=== PATIENT | male | born 1990 | race African-American/Black ===

== ENCOUNTER 2016-09-26 19:53 | Emergency (ER) | payer OTHER ==
[~2016-09-26] VITALS: Wt 107.5 kg
[~2016-09-26 19:53] MED LIST: OXYC-282 PO
[2016-09-26] MEDS ORDERED: LIDOCAINE 1% (MDV) 10 ML INJ INJ STA (21:07)
--- NOTE | 2016-09-26 21:29 | ERD ---
ER Documentation Chief Complaint Date/Time DATE: 09/26/16 TIME: 21:18 Chief Complaint Lac right wrist with glass HPI 26-year-old male comes in with a laceration to the right wrist from a piece of glass that occurred this afternoon. Patient states that he was trying to open the door and a piece of glass had flown and caused a laceration. He has localized pain, sharp, no weakness, no paresthesias. Patient does not recall his last tetanus shot. ROS All systems reviewed and are negative except as per history of present illness. Medications Home Meds Active Scripts Oxycodone Hcl-Acetaminophen* (Percocet*) 2.5-325 Mg Tablet, 1 TAB PO Q4H Y for PAIN, #15 TAB Prov:BETHANY ANGUIANO NP 07/09/15 Allergies Allergies: Coded Allergies: Penicillins (Verified Allergy, Mild, 09/26/16) acetaminophen (Verified Allergy, Unknown, SWEATS, 09/26/16) hydrocodone bit (Verified Allergy, Unknown, SWEATS, 09/26/16) PMhx/Soc History of Surgery: Yes (LEFT TIBIA) Anesthesia Reaction: No Hx Neurological Disorder: No Hx Respiratory Disorders: Yes (ASTHMA) Hx Cardiac Disorders: No Hx Psychiatric Problems: No Hx Miscellaneous Medical Probl: No Hx Alcohol Use: No Hx Substance Use: No Hx Tobacco Use: Yes Smoking Status: Current every day smoker Physical Exam Vitals Vital Signs Date Time Temp Pulse Resp B/P Pulse Ox O2 Delivery O2 Flow Rate FiO2 09/26/16 20:17 98.7 96 20 131/73 97 Physical Exam General: Well-developed, well-nourished. The patient appears in no acute distress. HEENT: Head is normocephalic, atraumatic. No scleral icterus. Neck: Supple. Nontender. Lungs: Clear to auscultation. Normal air movement. Heart: Regular rate and rhythm. S1 and S2 are normal. No murmurs, gallops, or rubs. Abdomen: Nondistended. Extremities: 2 cm transverse superficial laceration over the volar aspect of the right wrist. There is no tendon visible, no active bleeding, no foreign body seen. Radial, ulnar, median nerve intact.. Neurologic: Alert and oriented 3. No focal deficits. Normal speech and gait. Skin: Normal turgor. No rash or lesions. Results 24 hrs Current Medications Medications (Trade) Dose Ordered Sig/Hue Route PRN Reason Start Time Stop Time Status Last Admin Dose Admin Diphtheria/ Tetanus/Acell Pertussis (Adacel) 0.5 ml ONCE ONCE IM 09/26/16 21:30 09/26/16 21:31 DC 09/26/16 21:19 Lidocaine HCl (Lidocaine 1% (Mdv) 10 ml) 10 ml ONCE STAT INJ 09/26/16 21:07 09/26/16 21:08 DC Procedures/MDM Laceration Repair by me: Patient was verbally consented Thorough irrigation was done with normal saline, patient was anesthetized and reirrigated. Anesthesia: 1% lidocaine locally, 3 cc Location: Right wrist Tendon/Joint/Nerves: No injury Foreign body: None detected after copious irrigation and exploration Technique: Simple Interrupted Sutures 4 using 4-0 Ethilon Complexity: No subcutaneous sutures/mucosal repair/ edge excision Post Closure Length: 3 cm Patient's bleeding was easily controlled in the department and there is no indication of anemia. No evidence of compartment syndrome, neurologic injury, vascular injury, open joint, tendon laceration, or foreign body. Patient is appropriate for outpatient follow up. 48 hour wound check. Scar minimization instructions given. MDM: 26-year-old male comes in with a volar aspect wrist laceration from glass. It was accidental laceration, without any suicidal ideation or intent. Laceration is superficial, subcutaneous tissue visible however no active bleeding, no tendon visible. He does not have any neurologic deficits. I doubt any retained foreign body. Multiple irrigations were done, he was also reirrigated after he was anesthetized and there was no evidence of foreign body. Departure Diagnosis: Primary Impression: Laceration Condition: Good Patient Instructions: Laceration, All Additional Instructions: Wound check in 2 days. Suture removal in 7-10 days. Return to the ER sooner for any worsening or new symptoms. UNIQUE MCCLAIN PA-C Sep 26, 2016 21:28
[2016-09-26] MEDS ORDERED: DIPHTH/TET/ACEL PERTUSS (ADULT) 0.5 ML VIAL IM ONE (21:30)
[2016-09-26 21:54] VITALS: BP 136/76; PULSE 74; RESP 20; TEMP 98.3
== END 2016-09-26 21:55 | disposition home or self-care (01) ==
LOC: FTE 19:53
DX: S61.511A Laceration without foreign body of right wrist, initial encounter (principal); J45.909 Unspecified asthma, uncomplicated; F17.210 Nicotine dependence, cigarettes, uncomplicated; W25.XXXA Contact with sharp glass, initial encounter; Y92.9 Unspecified place or not applicable; Z23 Encounter for immunization
CPT/HCPCS: 12002; 90715; Z7610; 90471

== ENCOUNTER 2018-04-24 05:48 | Emergency (ER) | payer OTHER ==
[~2018-04-24] VITALS: Wt 95.5 kg
[2018-04-24 05:50] VITALS: BP 138/84; PULSE 117; RESP 20
[2018-04-24] MEDS ORDERED: KETOROLAC 30 MG INJ IM STA (06:17)
[2018-04-24] MEDS ORDERED: DIPHTH/TET/ACEL PERTUSS (ADULT) 0.5 ML VIAL IM* ONE (06:30)
[2018-04-24] MEDS ORDERED: IBUP-1542 PO (07:29)
[2018-04-24] MEDS ORDERED: CIPR500T4 PO (07:29)
--- NOTE | 2018-04-24 17:11 | ERD ---
ER Documentation Chief Complaint Chief Complaint 2 PUNCTURE WOUNDS ON SOLE OF LEFT FOOT HPI 27-year-old male presents for puncture wound on the sole of his left foot. He states that he has 2 of them. Happened last night. He states that he stepped on the fireplace fire iron. He notes 9 out of 10 pain. Denies any fever or chills. Unsure of his tetanus status. ROS All systems reviewed and are negative except as per history of present illness. Medications Home Meds Active Scripts Ciprofloxacin Hcl* (Ciprofloxacin Hcl*) 500 Mg Tablet, 500 MG PO BID for puncture wound for 5 Days, #10 TAB Prov:TERRIE MARK DO 04/24/18 Ibuprofen* (Motrin*) 600 Mg Tab, 600 MG PO Q6H PRN for PAIN AND OR ELEVATED TEMP, #30 TAB Prov:TERRIE MARK DO 04/24/18 Oxycodone Hcl-Acetaminophen* (Percocet*) 2.5-325 Mg Tablet, 1 TAB PO Q4H PRN for PAIN, #15 TAB Prov:BETHANY ANGUIANO [employer] 07/09/15 Allergies Allergies: Coded Allergies: Penicillins (Verified Allergy, Mild, 09/26/16) acetaminophen (Verified Allergy, Unknown, SWEATS, 09/26/16) hydrocodone bit (Verified Allergy, Unknown, SWEATS, 09/26/16) PMhx/Soc History of Surgery: Yes (LEFT TIBIA) Anesthesia Reaction: No Hx Neurological Disorder: No Hx Respiratory Disorders: Yes (ASTHMA) Hx Cardiac Disorders: No Hx Psychiatric Problems: No Hx Miscellaneous Medical Probl: No Hx Alcohol Use: No Hx Substance Use: No Hx Tobacco Use: Yes Smoking Status: Current every day smoker Physical Exam Vitals Temperature 96.6, pulse 117, respiration 20, blood pressure 138/84 Physical Exam Const: No acute distress Resp: Clear to auscultation bilaterally Cardio: Regular rate and rhythm, no murmurs, bilateral dorsalis pedis pulses intact Skin: No petechiae or rashes Back: No midline or flank tenderness Ext: Left plantar sided foot puncture wounds noted, no active bleeding Neur: Awake and alert, bilateral lower extremity sensation intact Psych: Normal Mood and Affect Results 24 hrs Current Medications Medications Dose Sig/Hue Start Time Status Last (Trade) Ordered Route PRN Stop Time Admin Dose Reason Admin Diphtheria/ 0.5 ml ONCE ONCE 04/24/18 DC 04/24/18 Tetanus/Acell IM* 06:30 06:29 Pertussis 04/24/18 06:31 (Adacel) Ketorolac 30 mg ONCE STAT 04/24/18 DC 04/24/18 Tromethamine IM 06:17 06:28 (Toradol) 04/24/18 06:19 Procedures/MDM Medical Decision Making: Differential diagnosis includes but not limited to puncture wound, cellulitis, foreign body Patient appeared well on physical exam. 2 puncture wounds noted on the left lateral side of the foot Wound was irrigated in the ER. Foot x-ray was negative for foreign body ED course: Patient was given toradol, tetanus shot given. Symptoms improved with treatment. Prescription(s): Patient given prescription for Cipro, ibuprofen. Patient advised to return to ER in 2 days for wound check. Patient advised to follow up with PCP in 1-2 days. Patient advised to return to ED for new or worsening symptoms. Patient stable on discharge from the ED. Disclaimer: Inadvertent spelling and grammatical errors are likely due to EHR/dictation software use and do not reflect on the overall quality of patient care. Also, please note that the electronic time recorded on this note does not necessarily reflect the actual time of the patient encounter. Departure Diagnosis: Primary Impression: Puncture wound Condition: Fair Patient Instructions: First Aid: Punctures, Puncture Wound, General, Puncture Wound, Foot Referrals: ANGELO MORENO MD (PCP) Additional Instructions: Call your primary care doctor TOMORROW for an appointment during the next 1-2 days.See the doctor sooner or return here if your condition worsens before your appointment time. TERRIE MARK DO Apr 24, 2018 17:11
== END 2018-04-24 07:37 | disposition home or self-care (01) ==
LOC: FTE 05:48
DX: S91.332A Puncture wound without foreign body, left foot, initial encounter (principal); J45.909 Unspecified asthma, uncomplicated; F17.210 Nicotine dependence, cigarettes, uncomplicated; X58.XXXA Exposure to other specified factors, initial encounter; Y92.9 Unspecified place or not applicable; Z23 Encounter for immunization
CPT/HCPCS: 73630; 90471; 90715; 96372; J1885; Z7502

== ENCOUNTER 2018-12-18 03:25 | Emergency (ER) | payer OTHER ==
[~2018-12-18] VITALS: Ht 180.3 cm; Wt 109.7 kg
[~2018-12-18 03:25] MED LIST changes: +CIPR500T4 PO; +IBUP-1542 PO; +IBUP-1561 PO; +ONDA4TAB14 PO
[2018-12-18 03:28] VITALS: Ht 180.3 cm; Wt 109.7 kg
[2018-12-18] MEDS ORDERED: morphine 4 MG/ML VIAL IV STA (04:15)
[2018-12-18] MEDS ORDERED: SOD CHLORIDE 0.9% 1,000 ML IV STA (04:15)
[2018-12-18] MEDS ORDERED: ONDANSETRON 4 MG INJ IV STA (04:15)
[2018-12-18 05:49] VITALS: BP 139/94; PULSE 88; RESP 15
== END 2018-12-18 05:53 | disposition home or self-care (01) ==
LOC: FTE 03:25
DX: K76.0 Fatty (change of) liver, not elsewhere classified (principal); J45.909 Unspecified asthma, uncomplicated; F17.210 Nicotine dependence, cigarettes, uncomplicated
CPT/HCPCS: 36415; 76705; 80053; 81003; 83690; 85025; 96374; 96375; J2270; J2405; J7030; Z7502